=== PATIENT | male | born 1930 | race Asian ===

== ENCOUNTER 2017-02-22 12:51 | Emergency (ER) | payer OTHER ==
[~2017-02-22] VITALS: Ht 170.2 cm; Wt 72.6 kg
[2017-02-22 12:51] VITALS: BP_SYST 131
[2017-02-22 13:41] LABS: ANION GAP 11 (5-15); CHLORIDE 106 mmol/L (98-107); GLUCOSE 140 mg/dL (70-99); HEMATOCRIT 32.5 % (36-54); MEAN CORPUSCULAR HEMOGLOBIN 23 pg (27-31); MEAN CORPUSCULAR HGB CONC 32 % (32-36); MEAN CORPUSCULAR VOLUME 72 fL (79.0-98.0); PLATELET COUNT (AUTO) 260 K/uL (130-430); RED CELL DISTRIBUTION WIDTH 19.8 % (9.0-15.0); SODIUM SERUM 137 mmol/L (136-145); UREA NITROGEN, BLOOD 24 mg/dL (8-21); WHITE BLOOD COUNT (AUTO) 6.3 K/uL (4.8-10.8)
[2017-02-22 13:43] LABS: HEMOGLOBIN 10.3 g/dL (14.0-18.0)
[2017-02-22 13:45] LABS: INR 1.1 (0.80-1.20); PROTHROMBIN TIME 11.8 SECS (9.5-12.5)
[2017-02-22 13:55] LABS: BILIRUBIN,URINE NEGATIVE (NEGATIVE); BLOOD, URINE 3+ (NEGATIVE); CLARITY/URINE CLOUDY (CLEAR); COLOR,URINE YELLOW (YELLOW); GLUCOSE,URINE 1+ (NEGATIVE); KETONES,URINE NEGATIVE (NEGATIVE); LEUKOCYTE ESTERASE ,URINE 1+ (NEGATIVE); NITRITE, URINE NEGATIVE (NEGATIVE); PH,URINE 7.5 (5.0-8.0); PROTEIN URINE 3+ (NEGATIVE); UROBILINOGEN,URINE 0.2 (0.2-1.0)
[2017-02-22 13:57] LABS: ALANINE AMINOTRANSFERASE 23 U/L (12-78); ALBUMIN 3.6 g/dL (3.4-4.8); ASPARTATE AMINOTRANSFERASE 28 U/L (10-37); TOTAL BILIRUBIN 0.7 mg/dL (0.0-1.0); TOTAL PROTEIN, SERUM 7.2 g/dL (6.4-8.3)
[2017-02-22 14:02] LABS: ATYPICAL LYMPHOCYTES % 0 % (0-0); BAND % (MANUAL) 0 % (0-6); BASOPHILS % (MANUAL) 0 % (0-2); EOSINOPHILS % (MANUAL) 6 % (0-7); LYMPHOCYTES % (MANUAL) 15 % (20-46); MONOCYTES % (MANUAL) 5 % (0-11)
[2017-02-22 14:09] LABS: RBC,URINE >100 /HPF (0-3)
[2017-02-22 14:10] LABS: BACTERIA,URINE RARE /HPF (None Seen)
[2017-02-22] MEDS ORDERED: NACL 0.9% 1,000 ML IV ONE (15:30)
[2017-02-22] MEDS ORDERED: LEVOFLOXACIN 500 MG/D5W 100 ML IV ONE (15:30)
[2017-02-22] MEDS ORDERED: LOVA20TA2 PO (16:10)
[2017-02-22] MEDS ORDERED: LOSA100T11 PO (16:10)
[2017-02-22] MEDS ORDERED: VITD2000 PO (16:10)
[2017-02-22] MEDS ORDERED: ALLO100T PO (16:10)
[2017-02-22] MEDS ORDERED: BICA50TA PO (16:10)
[2017-02-22] MEDS ORDERED: NOR10 PO (16:10)
[2017-02-22] MEDS ORDERED: FERR-57 PO (16:10)
[2017-02-22] MEDS ORDERED: FINA5TAB3 PO (16:10)
[2017-02-22 19:08] VITALS: BP_SYST 114
== END 2017-02-22 19:06 | disposition short-term general hospital (02) ==
LOC: SED 12:51
DX: N19 Unspecified kidney failure (principal); R31.0 Gross hematuria; Z85.46 Personal history of malignant neoplasm of prostate
CPT/HCPCS: 36415; 51702; 71010; 80053; 81000; 83605; 84484; 85007; 85027; 85610; 85730; 87040; 93005; 96360; 99285; J1956

== ENCOUNTER 2017-03-04 16:35 | Inpatient (IN) | payer OTHER ==
[~2017-03-04] VITALS: Ht 170.2 cm; Wt 65.9 kg
[~2017-03-04 16:35] MED LIST: ALLO100T PO; BICA50TA PO; FERR-57 PO; FINA5TAB3 PO; LOSA100T11 PO; LOVA20TA2 PO; NOR10 PO; VITD2000 PO
[2017-03-04] MEDS ORDERED: NACL 0.9% 2,000 ML IV SCH (16:41)
[2017-03-04 17:02] VITALS: BP_SYST 98
[2017-03-04] MEDS ORDERED: cefTRIAXone 1 GM IVPB PREMIX 50 ML IV ONE (17:15)
[2017-03-04] MEDS ORDERED: NACL 0.9% 1,000 ML IV ONE ×2 (17:15→22:45)
[2017-03-04 17:21] LABS: BASOPHILS # (AUTO) 0.1 K/uL (0.0-0.2); BASOPHILS % (AUTO) 0.7 % (0.0-2.0); EOSINOPHILS # (AUTO) 0.2 K/uL (0.0-0.4); HEMATOCRIT 33.7 % (36-54); HEMOGLOBIN 10.7 g/dL (14.0-18.0); LYMPHOCYTES # (AUTO) 1.7 K/uL (1.0-5.5); LYMPHOCYTES % (AUTO) 15.1 % (20.5-51.5); MEAN CORPUSCULAR HEMOGLOBIN 23 pg (27-31); MEAN CORPUSCULAR HGB CONC 32 % (32-36); MEAN CORPUSCULAR VOLUME 73 fL (79.0-98.0); MONOCYTES # (AUTO) 0.8 K/uL (0.0-1.0); MONOCYTES % (AUTO) 6.7 % (1.7-9.3); NEUTROPHILS # (AUTO) 8.5 K/uL (1.8-7.7); NEUTROPHILS % (AUTO) 75.5 % (40.0-70.0); PLATELET COUNT (AUTO) 225 K/uL (130-430); RED BLOOD CELL COUNT(AUTO) 4.61 MIL/uL (4.2-6.2); RED CELL DISTRIBUTION WIDTH 18.6 % (9.0-15.0); WHITE BLOOD COUNT (AUTO) 11.3 K/uL (4.8-10.8)
[2017-03-04 17:27] LABS: ANION GAP 6 (5-15); CALCIUM 9.5 mg/dL (8.4-11.0); CHLORIDE 104 mmol/L (98-107); CREATININE 4.95 mg/dL (0.55-1.30); GLUCOSE 118 mg/dL (70-99); POTASSIUM 5.6 mmol/L (3.5-5.1); SODIUM SERUM 135 mmol/L (136-145); UREA NITROGEN, BLOOD 38 mg/dL (8-21)
[2017-03-04 17:32] LABS: ALANINE AMINOTRANSFERASE 16 U/L (12-78); ALBUMIN 4.1 g/dL (3.4-4.8); ASPARTATE AMINOTRANSFERASE 26 U/L (10-37); INR 1.1 (0.80-1.20); PROTHROMBIN TIME 11.5 SECS (9.5-12.5); TOTAL BILIRUBIN 0.9 mg/dL (0.0-1.0); TOTAL PROTEIN, SERUM 7.9 g/dL (6.4-8.3)
[2017-03-04 18:08] LABS: BILIRUBIN,URINE 1+ (NEGATIVE); BLOOD, URINE 3+ (NEGATIVE); CLARITY/URINE SL CLOUDY (CLEAR); COLOR,URINE YELLOW (YELLOW); GLUCOSE,URINE NEGATIVE (NEGATIVE); KETONES,URINE TRACE (NEGATIVE); LEUKOCYTE ESTERASE ,URINE 2+ (NEGATIVE); NITRITE, URINE NEGATIVE (NEGATIVE); PH,URINE 5.5 (5.0-8.0); PROTEIN URINE 2+ (NEGATIVE); UROBILINOGEN,URINE 0.2 (0.2-1.0)
[2017-03-04 18:26] LABS: BACTERIA,URINE FEW /HPF (None Seen); HYALINE CASTS, URINE 0-10 /LPF (None Seen); RBC,URINE 20-50 /HPF (0-3); WBC,URINE 20-50 /HPF (0-3)
[2017-03-04] MEDS ORDERED: ACETAMINOPHEN/CODEINE 300 MG-30 MG TABLET PO ONE (19:30)
[2017-03-04] MEDS ORDERED: DEXTROSE 50% JECT 50 ML DISP.SYRIN IVP ONE (22:45)
[2017-03-04] MEDS ORDERED: SODIUM POLYSTYRENE SULFONATE 15 GM/60 ML UDBTL PO ONE (22:45)
[2017-03-04] MEDS ORDERED: INSULIN REGULAR, HUMAN 10 UNITS/0.1 ML INJ IVP ONE (22:45)
[2017-03-05] VITALS (22 sets, daily range): BP systolic 94–160
[2017-03-05] MEDS ORDERED: VANCOMYCIN HCL 1,000 MG in NS 250 ML IV ONE ×2
[2017-03-05] MEDS ORDERED: PIPERACILLIN/TAZO 3.375 GM in NS 50 ML IV ONE ×2
[2017-03-05] MEDS ORDERED: VANCOMYCIN HCL 1000 MG/VIAL IV ONE (00:22)
[2017-03-05] MEDS ORDERED: PIPERACILLIN/TAZOBACTAM 3.375 GM/VIAL (ZOSYN) IV ONE (00:22)
[2017-03-05] MEDS ORDERED: LORazepam 2 MG/ML VIAL (FOR ER USE) IVP ONE (00:45)
[2017-03-05] MEDS ORDERED: LORazepam 2 MG/ML VIAL (FOR ER USE) ONE (00:55)
[2017-03-05] MEDS ORDERED: METOPROLOL TARTRATE 5 MG/5 ML VIAL IVP ONE (01:00)
[2017-03-05] MEDS ORDERED: cefTRIAXone 1 GM IVPB PREMIX 50 ML IV ONE ×2 (01:45→03:44)
[2017-03-05] MEDS ORDERED: ACETAMINOPHEN 325 MG TABLET PO PRN (01:45)
[2017-03-05] MEDS ORDERED: LORazepam 2 MG/ML VIAL IVP PRN (02:00)
[2017-03-05 02:04] LABS: ANION GAP 6 (5-15); CALCIUM 8.6 mg/dL (8.4-11.0); CHLORIDE 114 mmol/L (98-107); CREATININE 4.09 mg/dL (0.55-1.30); POTASSIUM 3.9 mmol/L (3.5-5.1); SODIUM SERUM 143 mmol/L (136-145); UREA NITROGEN, BLOOD 35 mg/dL (8-21)
[2017-03-05 02:13] LABS: GLUCOSE 40 mg/dL (70-99)
[2017-03-05] MEDS ORDERED: DEXTROSE 50% JECT 50 ML DISP.SYRIN IVP ONE (02:15)
[2017-03-05] MEDS ORDERED: DEXTROSE 50% JECT 50 ML DISP.SYRIN ONE (02:21)
[2017-03-05] MEDS: NACL 0.9% 1,000 ML IV SCH ×4 (03:17→18:46)
[2017-03-05 06:53] LABS: HEMATOCRIT 28.9 % (36-54); MEAN CORPUSCULAR HEMOGLOBIN 23 pg (27-31); MEAN CORPUSCULAR HGB CONC 31 % (32-36); MEAN CORPUSCULAR VOLUME 74 fL (79.0-98.0); PLATELET COUNT (AUTO) 215 K/uL (130-430); RED CELL DISTRIBUTION WIDTH 19.2 % (9.0-15.0); WHITE BLOOD COUNT (AUTO) 6.5 K/uL (4.8-10.8)
[2017-03-05] MEDS ORDERED: METOPROLOL TARTRATE 5 MG/5 ML VIAL IVP PRN (07:15)
[2017-03-05] MEDS ORDERED: LORazepam 2 MG/ML VIAL IVP ONE (07:15)
[2017-03-05 07:29] LABS: ANION GAP 12 (5-15); CALCIUM 8.4 mg/dL (8.4-11.0); CHLORIDE 110 mmol/L (98-107); GLUCOSE 113 mg/dL (70-99); POTASSIUM 4.1 mmol/L (3.5-5.1); SODIUM SERUM 143 mmol/L (136-145); UREA NITROGEN, BLOOD 33 mg/dL (8-21)
[2017-03-05 07:52] LABS: BASOPHILS % (MANUAL) 0 % (0-2); EOSINOPHILS % (MANUAL) 2 % (0-7); LYMPHOCYTES % (MANUAL) 9 % (20-46); MONOCYTES % (MANUAL) 3 % (0-11)
[2017-03-05] MEDS: HALOPERIDOL LACTATE 5 MG/ML VIAL IVP PRN ×3 (09:42→20:26)
[2017-03-05] MEDS: LORazepam 2 MG/ML VIAL IVP PRN ×2 (19:39→23:53)
[2017-03-05] MEDS: cefTRIAXone 1 GM IVPB PREMIX 50 ML IV SCH (21:06)
[2017-03-06] VITALS (18 sets, daily range): BP systolic 93–153
[2017-03-06] MEDS: NACL 0.9% 1,000 ML IV SCH ×2 (02:10→08:23)
[2017-03-06] MEDS: LORazepam 2 MG/ML VIAL IVP PRN (04:40)
[2017-03-06 06:32] LABS: HEMATOCRIT 30.3 % (36-54); HEMOGLOBIN 9.5 g/dL (14.0-18.0); MEAN CORPUSCULAR HEMOGLOBIN 23 pg (27-31); MEAN CORPUSCULAR HGB CONC 31 % (32-36); MEAN CORPUSCULAR VOLUME 74 fL (79.0-98.0); PLATELET COUNT (AUTO) 222 K/uL (130-430); RED BLOOD CELL COUNT(AUTO) 4.08 MIL/uL (4.2-6.2); RED CELL DISTRIBUTION WIDTH 19.1 % (9.0-15.0)
[2017-03-06 06:54] LABS: WHITE BLOOD COUNT (AUTO) 6.7 K/uL (4.8-10.8)
[2017-03-06 07:41] LABS: ATYPICAL LYMPHOCYTES % 0 % (0-0); BAND % (MANUAL) 0 % (0-6); BASOPHILS % (MANUAL) 0 % (0-2); EOSINOPHILS % (MANUAL) 1 % (0-7); LYMPHOCYTES % (MANUAL) 18 % (20-46); MONOCYTES % (MANUAL) 3 % (0-11)
[2017-03-06 07:44] LABS: POTASSIUM 3.7 mmol/L (3.5-5.1); SODIUM SERUM 142 mmol/L (136-145)
[2017-03-06 07:46] LABS: ANION GAP 11 (5-15); CHLORIDE 111 mmol/L (98-107)
[2017-03-06 07:47] LABS: CALCIUM 8.4 mg/dL (8.4-11.0); CREATININE 2.51 mg/dL (0.55-1.30); GLUCOSE 69 mg/dL (70-99); UREA NITROGEN, BLOOD 25 mg/dL (8-21)
[2017-03-06 07:48] LABS: ALANINE AMINOTRANSFERASE 17 U/L (12-78); ALBUMIN 3.1 g/dL (3.4-4.8); ASPARTATE AMINOTRANSFERASE 49 U/L (10-37); TOTAL BILIRUBIN 0.7 mg/dL (0.0-1.0); TOTAL PROTEIN, SERUM 6.5 g/dL (6.4-8.3)
[2017-03-06 07:49] LABS: THYROID STIMULATING HORMONE 2.13 uIu/mL (0.34-4.82)
[2017-03-06] MEDS: D5/0.45 NS 1,000 ML IV SCH ×2 (12:57→22:15)
[2017-03-06] MEDS: cefTRIAXone 1 GM IVPB PREMIX 50 ML IV SCH (21:06)
[2017-03-07 00:34] VITALS: BP_SYST 121
== END 2017-03-07 01:48 | disposition short-term general hospital (02) | DRG 871 ==
LOC: SED 16:35 → SIC 03-05 01:26 → STU 03-06 14:37
PROVIDERS: ADMIT Internal Medicine; ATTEND Internal Medicine
DX: A41.9 Sepsis, unspecified organism (principal); G93.41 Metabolic encephalopathy; R65.21 Severe sepsis with septic shock; N17.9 Acute kidney failure, unspecified; N39.0 Urinary tract infection, site not specified; N13.6 Pyonephrosis; E46 Unspecified protein-calorie malnutrition; E87.5 Hyperkalemia; D64.9 Anemia, unspecified; E83.52 Hypercalcemia; I48.2 Chronic atrial fibrillation; N18.9 Chronic kidney disease, unspecified; R31.0 Gross hematuria; E16.2 Hypoglycemia, unspecified; E78.5 Hyperlipidemia, unspecified; F03.90 Unspecified dementia, unspecified severity, without behavioral disturbance, psychotic disturbance, mood disturbance, and anxiety; I12.9 Hypertensive chronic kidney disease with stage 1 through stage 4 chronic kidney disease, or unspecified chronic kidney disease; Z78.1 Physical restraint status; Z90.79 Acquired absence of other genital organ(s); Z90.49 Acquired absence of other specified parts of digestive tract; Z79.899 Other long term (current) drug therapy; Z68.22 Body mass index [BMI] 22.0-22.9, adult; Z79.82 Long term (current) use of aspirin; Z85.528 Personal history of other malignant neoplasm of kidney; Z87.891 Personal history of nicotine dependence; Z85.46 Personal history of malignant neoplasm of prostate; Z85.51 Personal history of malignant neoplasm of bladder
CPT/HCPCS: 36415; 71010; 73560-TC; 76770; 80048; 80053; 81000-TC; 82962; 83605; 83880; 84443-TC; 84484; 85007; 85025; 85027; 85610-TC; 85730-TC; 87040-TC; 87081; 87086; 93005; 93306; 96361; 96365; 96366; 96367; 96375; 99285; J0696; J1630; J2060; J2543; J3370; J3490; J7030; J7042; J7050

== ENCOUNTER 2017-03-14 21:45 | Inpatient (IN) | payer OTHER ==
[~2017-03-14] VITALS: Ht 170.2 cm; Wt 70.8 kg
[2017-03-14 21:51] VITALS: BP_SYST 143
[2017-03-14] MEDS ORDERED: MORPHINE 4 MG/ML INJ. SYRINGE IVP ONE ×2 (22:15→23:00)
[2017-03-14 22:35] LABS: MEAN CORPUSCULAR VOLUME 73 fL (79.0-98.0)
[2017-03-14 22:38] LABS: MEAN CORPUSCULAR HEMOGLOBIN 23 pg (27-31)
[2017-03-14 22:41] LABS: ANION GAP 5 (5-15); CHLORIDE 111 mmol/L (98-107); GLUCOSE 128 mg/dL (70-99); POTASSIUM 3.6 mmol/L (3.5-5.1); SODIUM SERUM 143 mmol/L (136-145)
[2017-03-14 22:42] LABS: CALCIUM 8.3 mg/dL (8.4-11.0); CREATININE 2.15 mg/dL (0.55-1.30); UREA NITROGEN, BLOOD 20 mg/dL (8-21)
[2017-03-14 22:43] LABS: ALANINE AMINOTRANSFERASE 25 U/L (12-78); ASPARTATE AMINOTRANSFERASE 33 U/L (10-37); CREATINE KINASE, TOTAL 147 U/L (39-308); TOTAL BILIRUBIN 0.3 mg/dL (0.0-1.0); TOTAL PROTEIN, SERUM 5.9 g/dL (6.4-8.3)
[2017-03-14 22:49] LABS: HEMATOCRIT 24.3 % (36-54); HEMOGLOBIN 7.5 g/dL (14.0-18.0); RED BLOOD CELL COUNT(AUTO) 3.34 MIL/uL (4.2-6.2)
[2017-03-14 22:50] LABS: MEAN CORPUSCULAR HGB CONC 31 % (32-36); PLATELET COUNT (AUTO) 229 K/uL (130-430); RED CELL DISTRIBUTION WIDTH 19.2 % (9.0-15.0)
[2017-03-14] MEDS ORDERED: ONDANSETRON HCL 4 MG/2 ML VIAL IVP ONE (23:00)
[2017-03-14 23:04] LABS: INR 1.2 (0.80-1.20); PROTHROMBIN TIME 12.6 SECS (9.5-12.5)
[2017-03-14 23:34] LABS: BASOPHILS % (MANUAL) 0 % (0-2); EOSINOPHILS % (MANUAL) 6 % (0-7); LYMPHOCYTES % (MANUAL) 36 % (20-46); MONOCYTES % (MANUAL) 4 % (0-11)
[2017-03-15] MEDS ORDERED: KETOROLAC TROMETHAMINE 30 MG VIAL IVP ONE
[2017-03-15 01:58] LABS: BILIRUBIN,URINE NEGATIVE (NEGATIVE); BLOOD, URINE 2+ (NEGATIVE); CLARITY/URINE CLOUDY (CLEAR); COLOR,URINE RED (YELLOW); GLUCOSE,URINE TRACE (NEGATIVE); KETONES,URINE NEGATIVE (NEGATIVE); LEUKOCYTE ESTERASE ,URINE NEGATIVE (NEGATIVE); NITRITE, URINE NEGATIVE (NEGATIVE); PH,URINE 7.5 (5.0-8.0); PROTEIN URINE 3+ (NEGATIVE); UROBILINOGEN,URINE 0.2 (0.2-1.0)
[2017-03-15 02:08] LABS: BACTERIA,URINE FEW /HPF (None Seen); MUCUS,URINE None Seen /LPF (None Seen); RBC,URINE >100 /HPF (0-3)
[2017-03-15 02:25] VITALS: BP_SYST 119
[2017-03-15] MEDS: NACL 0.9% 1,000 ML IV SCH (02:31)
[2017-03-15] MEDS: HYDROcodone/ACETAMIN 5-325 MG TAB (NORCO/ VICODIN) PO PRN (02:34)
[2017-03-15 07:32] LABS: ALANINE AMINOTRANSFERASE 22 U/L (12-78); ALBUMIN 2.7 g/dL (3.4-4.8); ANION GAP 7 (5-15); ASPARTATE AMINOTRANSFERASE 31 U/L (10-37); CALCIUM 8.4 mg/dL (8.4-11.0); CHLORIDE 113 mmol/L (98-107); CREATININE 2.64 mg/dL (0.55-1.30); GLUCOSE 95 mg/dL (70-99); POTASSIUM 4.2 mmol/L (3.5-5.1); SODIUM SERUM 144 mmol/L (136-145); TOTAL BILIRUBIN 0.4 mg/dL (0.0-1.0); TOTAL PROTEIN, SERUM 5.6 g/dL (6.4-8.3); UREA NITROGEN, BLOOD 21 mg/dL (8-21)
[2017-03-15 07:40] LABS: MEAN CORPUSCULAR HEMOGLOBIN 23 pg (27-31); MEAN CORPUSCULAR HGB CONC 31 % (32-36); MEAN CORPUSCULAR VOLUME 73 fL (79.0-98.0); PLATELET COUNT (AUTO) 245 K/uL (130-430); RED BLOOD CELL COUNT(AUTO) 2.98 MIL/uL (4.2-6.2); RED CELL DISTRIBUTION WIDTH 19.9 % (9.0-15.0); WHITE BLOOD COUNT (AUTO) 8.3 K/uL (4.8-10.8)
[2017-03-15 07:45] VITALS: BP_SYST 123
[2017-03-15 07:56] LABS: HEMATOCRIT 21.8 % (36-54); HEMOGLOBIN 6.8 g/dL (14.0-18.0)
[2017-03-15 09:19] LABS: ATYPICAL LYMPHOCYTES % 0 % (0-0); BAND % (MANUAL) 5 % (0-6); BASOPHILS % (MANUAL) 0 % (0-2); EOSINOPHILS % (MANUAL) 0 % (0-7); LYMPHOCYTES % (MANUAL) 13 % (20-46); MONOCYTES % (MANUAL) 1 % (0-11)
[2017-03-15 12:04] VITALS: BP_SYST 112
[2017-03-15 16:32] VITALS: BP_SYST 111
[2017-03-15 19:20] VITALS: BP_SYST 122
[2017-03-16 01:09] VITALS: BP_SYST 135
[2017-03-16] MEDS: NACL 0.9% 1,000 ML IV SCH ×3 (04:07→23:39)
[2017-03-16 04:56] VITALS: BP_SYST 131
[2017-03-16 08:00] VITALS: BP_SYST 141
[2017-03-16 08:37] LABS: HEMOGLOBIN 9.6 g/dL (14.0-18.0); MEAN CORPUSCULAR HGB CONC 32 % (32-36)
[2017-03-16 09:13] LABS: ANION GAP 10 (5-15); CALCIUM 8.4 mg/dL (8.4-11.0); CHLORIDE 113 mmol/L (98-107); CREATININE 2.74 mg/dL (0.55-1.30); GLUCOSE 92 mg/dL (70-99); POTASSIUM 4.6 mmol/L (3.5-5.1); SODIUM SERUM 144 mmol/L (136-145); TOTAL BILIRUBIN 0.6 mg/dL (0.0-1.0); UREA NITROGEN, BLOOD 25 mg/dL (8-21)
[2017-03-16 09:14] LABS: ALANINE AMINOTRANSFERASE 23 U/L (12-78); ALBUMIN 2.9 g/dL (3.4-4.8); ASPARTATE AMINOTRANSFERASE 39 U/L (10-37); TOTAL PROTEIN, SERUM 5.9 g/dL (6.4-8.3)
[2017-03-16 09:53] LABS: HEMATOCRIT 29.9 % (36-54); MEAN CORPUSCULAR HEMOGLOBIN 25 pg (27-31); MEAN CORPUSCULAR VOLUME 78 fL (79.0-98.0); PLATELET COUNT (AUTO) 241 K/uL (130-430); RED BLOOD CELL COUNT(AUTO) 3.84 MIL/uL (4.2-6.2); RED CELL DISTRIBUTION WIDTH 20.7 % (9.0-15.0); WHITE BLOOD COUNT (AUTO) 8.2 K/uL (4.8-10.8)
[2017-03-16 10:04] LABS: ATYPICAL LYMPHOCYTES % 0 % (0-0); BAND % (MANUAL) 3 % (0-6); BASOPHILS % (MANUAL) 0 % (0-2); EOSINOPHILS % (MANUAL) 6 % (0-7); LYMPHOCYTES % (MANUAL) 17 % (20-46); MONOCYTES % (MANUAL) 2 % (0-11)
[2017-03-16] MEDS: cefTRIAXone 1 GM IVPB PREMIX 50 ML IV SCH (12:02)
[2017-03-16 12:41] VITALS: BP_SYST 136; BP_SYST 168
[2017-03-16 16:28] VITALS: BP_SYST 139
[2017-03-16 20:22] VITALS: BP_SYST 145
[2017-03-16] MEDS: HYDROcodone/ACETAMIN 5-325 MG TAB (NORCO/ VICODIN) PO PRN (21:55)
[2017-03-17] VITALS (7 sets, daily range): BP systolic 119–159
[2017-03-17] MEDS: HALOPERIDOL LACTATE 5 MG/ML VIAL IVP PRN ×2 (00:28→06:12)
[2017-03-17 09:17] LABS: ANION GAP 8 (5-15); CALCIUM 8.7 mg/dL (8.4-11.0); CHLORIDE 109 mmol/L (98-107); CREATININE 2.09 mg/dL (0.55-1.30); GLUCOSE 101 mg/dL (70-99); SODIUM SERUM 141 mmol/L (136-145); UREA NITROGEN, BLOOD 21 mg/dL (8-21)
[2017-03-17 09:22] LABS: ALANINE AMINOTRANSFERASE 22 U/L (12-78); ASPARTATE AMINOTRANSFERASE 37 U/L (10-37); TOTAL BILIRUBIN 0.6 mg/dL (0.0-1.0); TOTAL PROTEIN, SERUM 6.5 g/dL (6.4-8.3)
[2017-03-17 09:27] LABS: HEMOGLOBIN 10.1 g/dL (14.0-18.0); WHITE BLOOD COUNT (AUTO) 7.4 K/uL (4.8-10.8)
[2017-03-17 09:35] LABS: HEMATOCRIT 32.2 % (36-54); MEAN CORPUSCULAR HEMOGLOBIN 25 pg (27-31); MEAN CORPUSCULAR HGB CONC 32 % (32-36); MEAN CORPUSCULAR VOLUME 78 fL (79.0-98.0); PLATELET COUNT (AUTO) 221 K/uL (130-430); RED BLOOD CELL COUNT(AUTO) 4.13 MIL/uL (4.2-6.2); RED CELL DISTRIBUTION WIDTH 21.3 % (9.0-15.0)
[2017-03-17] MEDS: cefTRIAXone 1 GM IVPB PREMIX 50 ML IV SCH ×2 (09:35→12:22)
[2017-03-17 11:14] LABS: ATYPICAL LYMPHOCYTES % 0 % (0-0); BAND % (MANUAL) 3 % (0-6); LYMPHOCYTES % (MANUAL) 16 % (20-46)
[2017-03-17 11:15] LABS: BASOPHILS % (MANUAL) 0 % (0-2); EOSINOPHILS % (MANUAL) 3 % (0-7); MONOCYTES % (MANUAL) 3 % (0-11)
[2017-03-17] MEDS: NACL 0.9% 1,000 ML IV SCH (12:22)
[2017-03-18 02:02] VITALS: BP_SYST 125
[2017-03-18 04:44] VITALS: BP_SYST 164
[2017-03-18 08:12] VITALS: BP_SYST 150
[2017-03-18] MEDS: cefTRIAXone 1 GM IVPB PREMIX 50 ML IV SCH (10:35)
[2017-03-18] MEDS: HYDROcodone/ACETAMIN 5-325 MG TAB (NORCO/ VICODIN) PO PRN (11:56)
[2017-03-18 12:28] VITALS: BP_SYST 110
[2017-03-18 13:12] VITALS: BP_SYST 110
== END 2017-03-18 16:20 | DRG 722 ==
LOC: SED 21:45 → SMU 03-15 01:59 → STU 03-17 00:04
PROVIDERS: ADMIT Internal Medicine Hospice and Palliative Medicine; ATTEND Internal Medicine Hospice and Palliative Medicine
PROC: 30233N1 Transfusion of Nonautologous Red Blood Cells into Peripheral Vein, Percutaneous Approach (ICD-10-PCS; principal; 2017-03-15)
DX: C61 Malignant neoplasm of prostate (principal); G93.41 Metabolic encephalopathy; D62 Acute posthemorrhagic anemia; Z51.5 Encounter for palliative care; R31.0 Gross hematuria; D64.9 Anemia, unspecified; I48.91 Unspecified atrial fibrillation; N18.9 Chronic kidney disease, unspecified; R41.0 Disorientation, unspecified; Z66 Do not resuscitate; Z85.51 Personal history of malignant neoplasm of bladder; Z90.79 Acquired absence of other genital organ(s)
CPT/HCPCS: 36415; 80053; 81000-TC; 82272; 82550-TC; 84484; 85007; 85027; 85610-TC; 85730-TC; 86886; 86900; 86901; 86920; 87081; 87086; 93005; 96365; 96375; 97116-GP; 97530-GP; 99285; J0696; J1630; J1885; J1956; J2270; J2405; J7030; J7050; P9021

== ENCOUNTER 2017-03-26 12:29 | Inpatient (IN) | payer OTHER ==
[~2017-03-26] VITALS: Ht 170.2 cm; Wt 68.9 kg
[2017-03-26 12:30] VITALS: BP_SYST 104
[2017-03-26 13:19] LABS: ANION GAP 8 (5-15); CALCIUM 8.8 mg/dL (8.4-11.0); CHLORIDE 111 mmol/L (98-107); CREATININE 3.16 mg/dL (0.55-1.30); GLUCOSE 105 mg/dL (70-99); POTASSIUM 4.1 mmol/L (3.5-5.1); SODIUM SERUM 142 mmol/L (136-145); UREA NITROGEN, BLOOD 41 mg/dL (8-21)
[2017-03-26 13:23] LABS: HEMATOCRIT 24.7 % (36-54); HEMOGLOBIN 8.2 g/dL (14.0-18.0); MEAN CORPUSCULAR HEMOGLOBIN 26 pg (27-31); MEAN CORPUSCULAR HGB CONC 33 % (32-36); MEAN CORPUSCULAR VOLUME 78 fL (79.0-98.0); PLATELET COUNT (AUTO) 256 K/uL (130-430); RED BLOOD CELL COUNT(AUTO) 3.19 MIL/uL (4.2-6.2); RED CELL DISTRIBUTION WIDTH 21.6 % (9.0-15.0); WHITE BLOOD COUNT (AUTO) 7.5 K/uL (4.8-10.8)
[2017-03-26 13:25] LABS: ALANINE AMINOTRANSFERASE 23 U/L (12-78); ASPARTATE AMINOTRANSFERASE 33 U/L (10-37); TOTAL BILIRUBIN 0.5 mg/dL (0.0-1.0); TOTAL PROTEIN, SERUM 6.4 g/dL (6.4-8.3)
[2017-03-26 13:42] LABS: INR 1.1 (0.80-1.20); PROTHROMBIN TIME 11.7 SECS (9.5-12.5)
[2017-03-26] MEDS ORDERED: NACL 0.9% 1,000 ML IV ONE ×2 (13:45→16:45)
[2017-03-26 13:46] LABS: ATYPICAL LYMPHOCYTES % 0 % (0-0); BAND % (MANUAL) 4 % (0-6); BASOPHILS % (MANUAL) 0 % (0-2); EOSINOPHILS % (MANUAL) 2 % (0-7); LYMPHOCYTES % (MANUAL) 26 % (20-46); MONOCYTES % (MANUAL) 1 % (0-11)
[2017-03-26 16:15] LABS: BILIRUBIN,URINE NEGATIVE (NEGATIVE); BLOOD, URINE 3+ (NEGATIVE); CLARITY/URINE CLOUDY (CLEAR); COLOR,URINE RED (YELLOW); GLUCOSE,URINE NEGATIVE (NEGATIVE); KETONES,URINE NEGATIVE (NEGATIVE); LEUKOCYTE ESTERASE ,URINE TRACE (NEGATIVE); NITRITE, URINE NEGATIVE (NEGATIVE); PROTEIN URINE 1+ (NEGATIVE); UROBILINOGEN,URINE 0.2 (0.2-1.0)
[2017-03-26] MEDS ORDERED: MORPHINE 4 MG/ML INJ. SYRINGE IVP ONE (16:15)
[2017-03-26] MEDS ORDERED: ONDANSETRON HCL 4 MG/2 ML VIAL IVP ONE (16:15)
[2017-03-26 17:13] LABS: BACTERIA,URINE RARE /HPF (None Seen); RBC,URINE >100 /HPF (0-3); WBC,URINE 0-3 /HPF (0-3)
[2017-03-26] MEDS ORDERED: NACL 0.9% 1,000 ML IV SCH (17:45)
[2017-03-26] MEDS ORDERED: cefTRIAXone 1 GM in D5W 50 ML IV SCH (17:45)
[2017-03-26 18:41] VITALS: BP_SYST 95
[2017-03-26] MEDS ORDERED: MORPHINE 4 MG/ML INJ. SYRINGE IVP PRN (19:45)
[2017-03-26] MEDS ORDERED: MORPHINE 2 MG/ML INJ. SYRINGE IVP PRN (19:45)
[2017-03-26] MEDS ORDERED: TEMAZEPAM 15 MG CAPSULE PO PRN (19:45)
[2017-03-26 20:00] VITALS: BP_SYST 100
[2017-03-26] MEDS ORDERED: cefTRIAXone 1 GM IVPB PREMIX 50 ML IV ONE (20:17)
[2017-03-26] MEDS ORDERED: cefTRIAXone 1 GM IVPB PREMIX 50 ML IV SCH (22:00)
[2017-03-26] MEDS ORDERED: LEVOFLOXACIN 500 MG/D5W 100 ML IV ONE (22:00)
[2017-03-26] MEDS ORDERED: ACETAMINOPHEN 325 MG TABLET PO PRN (22:00)
[2017-03-26 22:55] VITALS: BP_SYST 106
[2017-03-26] MEDS: 0.45% NACL 1,000 ML IV SCH (23:00)
[2017-03-26 23:10] VITALS: BP_SYST 95
[2017-03-27] VITALS (7 sets, daily range): BP systolic 91–115
[2017-03-27] MEDS ORDERED: LEVOFLOXACIN 500 MG/D5W 100 ML IV ONE (00:05)
[2017-03-27] MEDS: 0.45% NACL 1,000 ML IV SCH ×2 (05:50→14:59)
[2017-03-27 07:03] LABS: HEMATOCRIT 24.4 % (36-54); MEAN CORPUSCULAR HEMOGLOBIN 26 pg (27-31); MEAN CORPUSCULAR HGB CONC 32 % (32-36); MEAN CORPUSCULAR VOLUME 79 fL (79.0-98.0); PLATELET COUNT (AUTO) 212 K/uL (130-430); RED BLOOD CELL COUNT(AUTO) 3.08 MIL/uL (4.2-6.2); RED CELL DISTRIBUTION WIDTH 19.8 % (9.0-15.0); WHITE BLOOD COUNT (AUTO) 5.9 K/uL (4.8-10.8)
[2017-03-27 07:30] LABS: HEMOGLOBIN 7.9 g/dL (14.0-18.0)
[2017-03-27] MEDS: FINASTERIDE 5 MG TABLET (PROSCAR) PO SCH (09:38)
[2017-03-27] MEDS: NEPHROVITE, (FOLIC ACID/VITAMIN B COMP W-C 1 TAB) PO SCH (09:38)
[2017-03-27] MEDS: CHOLECALCIFEROL (VITAMIN D3) 2,000 UNIT TABLET PO SCH (09:38)
[2017-03-27 09:39] LABS: ATYPICAL LYMPHOCYTES % 0 % (0-0); BAND % (MANUAL) 0 % (0-6); BASOPHILS % (MANUAL) 0 % (0-2); EOSINOPHILS % (MANUAL) 2 % (0-7); LYMPHOCYTES % (MANUAL) 11 % (20-46); MONOCYTES % (MANUAL) 7 % (0-11)
[2017-03-27] MEDS: FERROUS SULFATE 325 MG TABLET.DR PO SCH ×2 (09:39→21:09)
[2017-03-27] MEDS: cefTRIAXone 1 GM in D5W 50 ML IV SCH (09:39)
[2017-03-27] MEDS: ALLOPURINOL 100 MG TABLET (ZYLOPRIM) PO SCH ×2 (09:39→21:09)
[2017-03-27] MEDS: BICALUTAMIDE 50 MG TABLET PO SCH (09:40)
[2017-03-27] MEDS ORDERED: HYDROcodone/ACETAMIN 5-325 MG TAB (NORCO/ VICODIN) PO PRN (13:30)
[2017-03-27] MEDS: SIMVASTATIN 10 MG TABLET PO SCH (17:19)
[2017-03-28] VITALS (7 sets, daily range): BP systolic 92–117
[2017-03-28] MEDS: 0.45% NACL 1,000 ML IV SCH ×4 (03:39→21:15)
[2017-03-28] MEDS: NEPHROVITE, (FOLIC ACID/VITAMIN B COMP W-C 1 TAB) PO SCH (08:58)
[2017-03-28] MEDS: CHOLECALCIFEROL (VITAMIN D3) 2,000 UNIT TABLET PO SCH (08:58)
[2017-03-28] MEDS: BICALUTAMIDE 50 MG TABLET PO SCH (08:58)
[2017-03-28] MEDS: ALLOPURINOL 100 MG TABLET (ZYLOPRIM) PO SCH ×2 (08:58→21:08)
[2017-03-28] MEDS: cefTRIAXone 1 GM in D5W 50 ML IV SCH (08:59)
[2017-03-28] MEDS: FERROUS SULFATE 325 MG TABLET.DR PO SCH ×2 (08:59→21:07)
[2017-03-28] MEDS: FINASTERIDE 5 MG TABLET (PROSCAR) PO SCH (08:59)
[2017-03-28 17:25] LABS: HEMATOCRIT 29.6 % (36-54); HEMOGLOBIN 9.7 g/dL (14.0-18.0); MEAN CORPUSCULAR HEMOGLOBIN 26 pg (27-31); MEAN CORPUSCULAR HGB CONC 33 % (32-36); MEAN CORPUSCULAR VOLUME 80 fL (79.0-98.0); PLATELET COUNT (AUTO) 211 K/uL (130-430); RED BLOOD CELL COUNT(AUTO) 3.73 MIL/uL (4.2-6.2); RED CELL DISTRIBUTION WIDTH 18.6 % (9.0-15.0); WHITE BLOOD COUNT (AUTO) 7.3 K/uL (4.8-10.8)
[2017-03-28 17:38] LABS: ANION GAP 5 (5-15); CALCIUM 8.3 mg/dL (8.4-11.0); CHLORIDE 107 mmol/L (98-107); CREATININE 1.87 mg/dL (0.55-1.30); GLUCOSE 127 mg/dL (70-99); POTASSIUM 4.8 mmol/L (3.5-5.1); SODIUM SERUM 135 mmol/L (136-145); UREA NITROGEN, BLOOD 28 mg/dL (8-21)
[2017-03-28] MEDS: SIMVASTATIN 10 MG TABLET PO SCH (17:46)
[2017-03-28 18:24] LABS: ATYPICAL LYMPHOCYTES % 3 % (0-0); BAND % (MANUAL) 9 % (0-6); BASOPHILS % (MANUAL) 0 % (0-2); EOSINOPHILS % (MANUAL) 3 % (0-7); LYMPHOCYTES % (MANUAL) 24 % (20-46); MONOCYTES % (MANUAL) 3 % (0-11)
[2017-03-28] MEDS: ALPRAZolam 0.25 MG TABLET PO PRN (22:50)
[2017-03-29 04:22] VITALS: BP_SYST 115
[2017-03-29] MEDS: 0.45% NACL 1,000 ML IV SCH (05:53)
[2017-03-29] MEDS: ALLOPURINOL 100 MG TABLET (ZYLOPRIM) PO SCH (08:29)
[2017-03-29] MEDS: NEPHROVITE, (FOLIC ACID/VITAMIN B COMP W-C 1 TAB) PO SCH (08:29)
[2017-03-29] MEDS: FERROUS SULFATE 325 MG TABLET.DR PO SCH (08:29)
[2017-03-29] MEDS: CHOLECALCIFEROL (VITAMIN D3) 2,000 UNIT TABLET PO SCH (08:29)
[2017-03-29] MEDS: BICALUTAMIDE 50 MG TABLET PO SCH (08:30)
[2017-03-29] MEDS: FINASTERIDE 5 MG TABLET (PROSCAR) PO SCH (08:31)
[2017-03-29] MEDS: cefTRIAXone 1 GM in D5W 50 ML IV SCH (08:31)
[2017-03-29] MEDS: ALPRAZolam 0.25 MG TABLET PO PRN (08:46)
[2017-03-29] MEDS ORDERED: LORazepam 2 MG/ML VIAL IVP ONE (09:15)
[2017-03-29] MEDS ORDERED: LORazepam 2 MG/ML VIAL ONE (09:20)
[2017-03-29 10:14] LABS: BASOPHILS % (AUTO) 0.4 % (0.0-2.0); EOSINOPHILS # (AUTO) 0.2 K/uL (0.0-0.4); EOSINOPHILS % (AUTO) 2.7 % (0.0-4.0); HEMATOCRIT 30.8 % (36-54); HEMOGLOBIN 10.1 g/dL (14.0-18.0); LYMPHOCYTES # (AUTO) 1.2 K/uL (1.0-5.5); LYMPHOCYTES % (AUTO) 15.9 % (20.5-51.5); MEAN CORPUSCULAR HEMOGLOBIN 26 pg (27-31); MEAN CORPUSCULAR HGB CONC 33 % (32-36); MEAN CORPUSCULAR VOLUME 80 fL (79.0-98.0); MONOCYTES # (AUTO) 0.4 K/uL (0.0-1.0); MONOCYTES % (AUTO) 6.1 % (1.7-9.3); NEUTROPHILS # (AUTO) 5.5 K/uL (1.8-7.7); NEUTROPHILS % (AUTO) 74.9 % (40.0-70.0); PLATELET COUNT (AUTO) 246 K/uL (130-430); RED BLOOD CELL COUNT(AUTO) 3.83 MIL/uL (4.2-6.2); WHITE BLOOD COUNT (AUTO) 7.4 K/uL (4.8-10.8)
[2017-03-29 10:30] LABS: ANION GAP 8 (5-15); CALCIUM 8.3 mg/dL (8.4-11.0); CHLORIDE 107 mmol/L (98-107); CREATININE 1.65 mg/dL (0.55-1.30); GLUCOSE 124 mg/dL (70-99); POTASSIUM 3.7 mmol/L (3.5-5.1); SODIUM SERUM 136 mmol/L (136-145); UREA NITROGEN, BLOOD 25 mg/dL (8-21)
[2017-03-29 12:49] VITALS: BP_SYST 112
[2017-03-29 16:27] VITALS: BP_SYST 112
== END 2017-03-29 16:50 | disposition short-term general hospital (02) | DRG 722 ==
LOC: SED 12:29 → STU 17:32 → SMU 03-28 19:36
PROVIDERS: ADMIT Internal Medicine Hospice and Palliative Medicine; ATTEND Internal Medicine Hospice and Palliative Medicine
PROC: 30233N1 Transfusion of Nonautologous Red Blood Cells into Peripheral Vein, Percutaneous Approach (ICD-10-PCS; principal; 2017-03-26)
DX: C61 Malignant neoplasm of prostate (principal); N17.0 Acute kidney failure with tubular necrosis; D62 Acute posthemorrhagic anemia; E44.1 Mild protein-calorie malnutrition; N39.0 Urinary tract infection, site not specified; C64.9 Malignant neoplasm of unspecified kidney, except renal pelvis; C67.9 Malignant neoplasm of bladder, unspecified; R31.0 Gross hematuria; I12.9 Hypertensive chronic kidney disease with stage 1 through stage 4 chronic kidney disease, or unspecified chronic kidney disease; E78.5 Hyperlipidemia, unspecified; F03.90 Unspecified dementia, unspecified severity, without behavioral disturbance, psychotic disturbance, mood disturbance, and anxiety; I95.9 Hypotension, unspecified; I48.91 Unspecified atrial fibrillation; M10.9 Gout, unspecified; N18.9 Chronic kidney disease, unspecified; Z66 Do not resuscitate; Z79.899 Other long term (current) drug therapy; Z90.79 Acquired absence of other genital organ(s); Z68.23 Body mass index [BMI] 23.0-23.9, adult; Z85.46 Personal history of malignant neoplasm of prostate
CPT/HCPCS: 36415; 80048; 80053; 81000-TC; 83605; 85007; 85025; 85027; 85610-TC; 85730-TC; 86886; 86900; 86901; 86920; 87040-TC; 87081; 87086; 96361; 96374; 96375; 99285; J0696; J1956; J2060; J2270; J2405; J7030; J7040; J7050; J7060; P9021

== ENCOUNTER 2018-08-22 10:30 | Emergency (ER) | payer OTHER ==
[~2018-08-22] VITALS: Ht 170.2 cm; Wt 49.9 kg
[~2018-08-22 10:30] MED LIST changes: -LOSA100T11 PO; +LOSA100T3 PO
[2018-08-22 10:39] VITALS: BP_SYST 143
[2018-08-22 14:59] LABS: RED BLOOD CELL COUNT(AUTO) 4.62 MIL/uL (4.2-6.2)
[2018-08-22 15:13] LABS: HEMOGLOBIN 11.1 g/dL (14.0-18.0); MEAN CORPUSCULAR HEMOGLOBIN 24 pg (27-31); MEAN CORPUSCULAR HGB CONC 31 % (32-36); MEAN CORPUSCULAR VOLUME 78 fL (79.0-98.0); PLATELET COUNT (AUTO) 193 K/uL (130-430); RED CELL DISTRIBUTION WIDTH 19.1 % (9.0-15.0); WHITE BLOOD COUNT (AUTO) 5.5 K/uL (4.8-10.8)
[2018-08-22 15:16] LABS: ANION GAP 6 (5-15); CALCIUM 9.1 mg/dL (8.4-11.0); CHLORIDE 104 mmol/L (98-107); CREATININE 1.34 mg/dL (0.55-1.30); GLUCOSE 94 mg/dL (70-99); POTASSIUM 4.5 mmol/L (3.5-5.1); SODIUM SERUM 136 mmol/L (136-145); UREA NITROGEN, BLOOD 20 mg/dL (8-21)
[2018-08-22 15:20] LABS: ALANINE AMINOTRANSFERASE 23 U/L (12-78); ALBUMIN 3.5 g/dL (3.4-4.8); ASPARTATE AMINOTRANSFERASE 34 U/L (10-37); TOTAL BILIRUBIN 0.5 mg/dL (0.0-1.0)
[2018-08-22 15:25] VITALS: BP_SYST 138
[2018-08-22] MEDS ORDERED: KETOROLAC TROMETHAMINE 60 MG/2 ML VIAL IM ONE (15:45)
[2018-08-22 15:50] LABS: ATYPICAL LYMPHOCYTES % 0 % (0-0); BAND % (MANUAL) 2 % (0-6); BASOPHILS % (MANUAL) 0 % (0-2); EOSINOPHILS % (MANUAL) 4 % (0-7); LYMPHOCYTES % (MANUAL) 46 % (20-46); MONOCYTES % (MANUAL) 5 % (0-11)
== END 2018-08-22 15:25 | disposition home or self-care (01) ==
LOC: SED 10:30
DX: M17.11 Unilateral primary osteoarthritis, right knee (principal); M16.11 Unilateral primary osteoarthritis, right hip; D64.9 Anemia, unspecified; E78.5 Hyperlipidemia, unspecified; Z79.899 Other long term (current) drug therapy; Z85.51 Personal history of malignant neoplasm of bladder; Z85.46 Personal history of malignant neoplasm of prostate
CPT/HCPCS: 36415; 73502; 73560; 80053; 85007; 85027; 96372; 99285; J1885